=== PATIENT | female | born 1990 | race Caucasian/White ===

== ENCOUNTER 2025-09-24 13:03 | Emergency (ER) | payer MEDICAID ==
[~2025-09-24] VITALS: Ht 157.5 cm; Wt 68.0 kg
[2025-09-24 13:49] VITALS: TEMP 98.4
[2025-09-24 14:41] LABS: COVID AG,FIA SOURCE NASAL SWAB
[2025-09-24 15:38] LABS: SARS-COV2 (COVID) ANTIGEN,FIA Negative (Negative)
[2025-09-24 15:39] LABS: INFLUENZA TYPE A NEGATIVE FOR TYPE A (NEGATIVE); INFLUENZA TYPE B NEGATIVE FOR TYPE B (NEGATIVE)
[2025-09-24] MEDS ORDERED: GUAIF600 PO (15:46)
[2025-09-24] MEDS ORDERED: OXYM15SP63 NASAL (15:46)
[2025-09-24 15:47] VITALS: BP 111/65; PULSE 84; RESP 18; O2SAT 99
== END 2025-09-24 15:55 | disposition home or self-care (01) ==
LOC: EMS 13:03
DX: J06.9 Acute upper respiratory infection, unspecified (principal); R05.9 Cough, unspecified; R09.81 Nasal congestion; R51.9 Headache, unspecified; K21.9 Gastro-esophageal reflux disease without esophagitis; Z20.822 Contact with and (suspected) exposure to COVID-19
CPT/HCPCS: 87804; 99283